=== PATIENT | male | born 1990 | race Caucasian/White ===

== ENCOUNTER 2017-08-06 06:06 | Emergency (ER) | payer SELFPAY ==
[~2017-08-06] VITALS: Ht 177.8 cm; Wt 81.5 kg
[~2017-08-06 06:06] MED LIST: FLUO20SO3 PO
[2017-08-06 06:16] VITALS: BP 126/71; PULSE 62; RESP 18; TEMP 98.3; O2SAT 100
[2017-08-06] MEDS ORDERED: FLUO40CA PO (06:34)
[2017-08-06] MEDS ORDERED: SODIUM CHLOR 0.9% 1000 ML INJ 1,000 ML IV ONE (06:58)
[2017-08-06] MEDS ORDERED: PROCHLORPERAZINE INJ 10 MG/2 ML VIAL IVP ONE (07:00)
[2017-08-06] MEDS ORDERED: diphenhydrAMINE HCL 50 MG/ML VIAL IVP ONE (07:00)
--- NOTE | 2017-08-06 07:01 | PD ---
HPI Chief Complaint: Headache Time Seen by Provider: 06:50 Travel History International Travel<30 days: No Contact w/Intl Traveler<30days: No Traveled to known affect area: No History of Present Illness HPI 27-year-old male presents to the emergency department by private transportation for complaint of 2 days of migraine headache. Patient has history of migraines but typically the duration of his headache is not for 2 days. Patient rates his headache 10/10 intensity. Patient took ibuprofen 800 mg at 530 this morning prior to arrival to the emergency department. Patient does note light sensitivity has had nausea without vomiting. Patient has family history of migraine. No report of febrile illness next deafness or recent injury or fall. Patient denies any upper extremity or lower extremity numbness tingling or weakness. Patient is unable to identify exacerbating or alleviating factors. [facility] Past Medical History Narrative Medical Ear surgery tobacco use; nursing notes reviewed migraines depression Blood Disorders: No Depression: Yes Diabetes: No Diminished Hearing: No Gastrointestinal Disorders: No Headaches: Yes Immunizations Current: No PNEUMOCCOCAL Vaccine (Year): 2 Past Surgical History Ear Surgery: Yes (Drainage tubes when young) Other Surgery: No Social History Alcohol Use: No Tobacco Use: Yes (2-3 PPD) Substance Use: No (PAST USE) Allergies-Medications (Allergen,Severity, Reaction): Coded Allergies: Sulfa (Sulfonamide Antibiotics) (Unverified Allergy, Severe, RASH, 08/06/17) Reported Meds & Prescriptions Reported Meds & Active Scripts Active Reported Fluoxetine (Fluoxetine HCl) 40 Mg Cap 40 Cap PO DAILY Review of Systems Except as stated in HPI: all other systems reviewed are Neg Physical Exam Narrative GENERAL: Well developed well-nourished male no acute distress no respiratory distress; GCS 15 SKIN: Warm and dry. HEAD: Atraumatic. Normocephalic. EYES: Pupils equal and round. No scleral icterus. No injection or drainage. Funduscopic exam no papilledema ENT: No nasal bleeding or discharge. Mucous membranes pink and moist. NECK: Trachea midline. No JVD. Supple no meningismus no nuchal rigidity CARDIOVASCULAR: Regular rate and rhythm. RESPIRATORY: No accessory muscle use. Clear to auscultation. Breath sounds equal bilaterally. GASTROINTESTINAL: Abdomen soft, non-tender, nondistended. Hepatic and splenic margins not palpable. MUSCULOSKELETAL: Extremities without clubbing, cyanosis, or edema. No obvious deformities. NEUROLOGICAL: Awake and alert. No obvious cranial nerve deficits. Motor grossly within normal limits. Five out of 5 muscle strength in the arms and legs. Normal speech. PSYCHIATRIC: Appropriate mood and affect; insight and judgment normal. Data Data Last Documented VS Vital Signs Date Time Temp Pulse Resp B/P (MAP) Pulse Ox O2 Delivery O2 Flow Rate FiO2 08/06/17 07:14 97.7 64 17 148/79 (102) 99 Room Air Orders Orders Iv Access Insert/Monitor (08/06/17 06:58) Oximetry (08/06/17 06:58) Prochlorperazine Inj (Compazine Inj) (08/06/17 07:00) Diphenhydramine Inj (Benadryl Inj) (08/06/17 07:00) Sodium Chlor 0.9% 1000 Ml Inj (Ns 1000 M (08/06/17 06:58) MDM Medical Decision Making Medical Screen Exam Complete: Yes Emergency Medical Condition: Yes Medical Record Reviewed: Yes Differential Diagnosis Cephalgia, migraine, tension headache, ICH, dehydration Narrative Course IV access obtained patient administered 1 L normal saline 10 mg Compazine IV along with Benadryl 25 mg IV Patient reassessed at 7:35 AM patient reports that he is markedly improved resting comfortably IV fluids not yet infused patient will be discharged to home in the care of his parent Diagnosis Primary Impression: Cephalgia Referrals: Primary Care Physician 1 day Patient Instructions: General Instructions Additional Instructions: Increase fluid hydration Follow-up with your primary care provider Take Zofran as prescribed as needed for nausea and/or vomiting May continue to take as needed ibuprofen/Advil/Motrin 800 mg as often as every 8 hours for pain greater than 5/10 intensity or acetaminophen/Tylenol every 4-6 hours for minor pain or fever 100.4F or greater Return the emergency department for any concerns or change in condition Elaina De Los Santos MD August 06, 2017 07:01
[2017-08-06 07:14] VITALS: BP 148/79; PULSE 64; RESP 17; TEMP 97.7; O2SAT 99
[2017-08-06 08:30] VITALS: BP 122/75; PULSE 89; RESP 16; TEMP 97.8; O2SAT 99
[2017-08-06 10:30] VITALS: BP 120/83; TEMP 97.8
[2017-08-06] MEDS ORDERED: ZOFR4TAB PO (10:32)
== END 2017-08-06 10:30 | disposition home or self-care (01) ==
LOC: NEPC 06:06
DX: R51 Headache (principal); F17.200 Nicotine dependence, unspecified, uncomplicated; F32.9 Major depressive disorder, single episode, unspecified
CPT/HCPCS: 96361; 96374; 96375; 99284; J0780; J1200; J7030